=== PATIENT | female | born 1955 | race Caucasian/White ===

== ENCOUNTER 2020-08-09 16:33 | Emergency (ER) | payer OTHER ==
[~2020-08-09] VITALS: Ht 175.3 cm; Wt 79.4 kg
[2020-08-09 16:42] VITALS: BP 174/117
--- NOTE | 2020-08-09 17:00 | NUR ---
Biba w c/o R shoulder subluxation s/p mech fall earlier today. -LOC, deformity noted to r shoulder 10/10 pain. hx: copd, htn, depression
[2020-08-09] MEDS ORDERED: MORPHINE SULFATE 4 MG/ML SYR IVP ONE (18:10)
[2020-08-09] MEDS ORDERED: KETOROLAC 15 MG/ML VIAL IVP ONE (18:10)
[2020-08-09] MEDS ORDERED: HYDROcodone/APAP 5/325 MG 1 TAB TAB PO ONE (18:15)
--- NOTE | 2020-08-09 19:04 | NUR ---
applied sling and irrigated lac without any issues
[2020-08-09 19:38] VITALS: BP 150/70
--- NOTE | 2020-08-09 19:38 | NUR ---
Patient discharged with v/s stable. Written and verbal after care instructions given and explained. Patient alert, oriented and verbalized understanding of instructions. Ambulatory with steady gait. All questions addressed prior to discharge. ID band removed. Patient advised to follow up with PMD. Rx of MOTRIN AND NORCO given. Patient educated on indication of medication including possible reaction and side effects. Opportunity to ask questions provided and answered.
== END 2020-08-09 19:38 | disposition home or self-care (01) ==
LOC: MED 16:33
DX: S42.291A Other displaced fracture of upper end of right humerus, initial encounter for closed fracture (principal); S01.81XA Laceration without foreign body of other part of head, initial encounter; F17.290 Nicotine dependence, other tobacco product, uncomplicated; W01.0XXA Fall on same level from slipping, tripping and stumbling without subsequent striking against object, initial encounter; Y93.01 Activity, walking, marching and hiking; Y92.89 Other specified places as the place of occurrence of the external cause; Y99.8 Other external cause status
CPT/HCPCS: 73030; 90471; 90715; 96374; 99284; J1885

== ENCOUNTER 2022-10-26 10:27 | Inpatient (IN) | payer OTHER ==
[~2022-10-26] VITALS: Ht 170.2 cm; Wt 90.7 kg
--- NOTE | 2022-10-26 10:28 | NUR ---
pt placed in bed 09 by am[facility]
[2022-10-26 10:31] VITALS: BP 136/88
--- NOTE | 2022-10-26 10:34 | NUR ---
67 y/o female biba from home, pt presents to ed with c/o sob, increased difficulty breathing since yesterday. pt at home was 80% on RA and was cyanotic per [facility]. pt given 15L nonrebreather, now at 95% saturation. denies any sick contacts, fever, chills, n/v/d. a&ox4, ambulates with assist. 7/10 chest pain. pmh: afib, htn, copd nka med: unable to recall
--- NOTE | 2022-10-26 10:37 | NUR ---
felicia and flu swabbed at this time
--- NOTE | 2022-10-26 10:40 | NUR ---
VALENTIN AND INFLUENZA SWABED AND WALKED TO THE LAB.
--- NOTE | 2022-10-26 10:48 | NUR ---
ASSUMED PATIEN CARE, NURSING ASSESSMENT COMPLETED.
[2022-10-26] MEDS ORDERED: ALBUTEROL 0.083% 2.5 MG/3 ML NEBU INH ONE (10:50)
[2022-10-26] MEDS ORDERED: IPRATROPIUM 0.02% 0.5 MG/2.5 ML NEBU INH ONE (10:50)
[2022-10-26] MEDS ORDERED: DILTIAZEM 25 MG/5 ML VIAL IVP ONE (11:00)
[2022-10-26 11:09] LABS: BASOPHILS % (AUTO) 0.2 % (0.0-2.0); EOSINOPHILS % (AUTO) 0.1 % (0.0-4.0); HEMATOCRIT 36.1 % (36-48); HEMOGLOBIN 11.4 g/dL (12.0-16.0); LYMPHOCYTES # (AUTO) 0.6 K/uL (2.5-16.5); LYMPHOCYTES % (AUTO) 5.9 % (20.5-51.1); MEAN CORPUSCULAR HEMOGLOBIN 26 pg (27-31); MEAN CORPUSCULAR HGB CONC 32 g/dL (33-37); MEAN CORPUSCULAR VOLUME 83.7 fL (80-94); MONOCYTES # (AUTO) 0.4 K/uL (0.8-1.0); MONOCYTES % (AUTO) 3.9 % (1.7-9.3); NEUTROPHILS # (AUTO) 8.5 K/uL (1.8-7.7); NEUTROPHILS % (AUTO) 89.9 % (42.2-75.2); PLATELET COUNT (AUTO) 266 K/uL (140-450); RED BLOOD CELL COUNT(AUTO) 4.31 MIL/uL (4.20-5.40); RED CELL DISTRIBUTION WIDTH 15.9 % (11.6-13.7); WHITE BLOOD COUNT (AUTO) 9.5 K/uL (4.8-10.8)
[2022-10-26 11:23] LABS: ALBUMIN 3.8 g/dL (3.4-5.0); ANION GAP 17.9 (8-16); CARBON DIOXIDE 21.9 mmol/L (21-32); CREATININE 1.5 mg/dL (0.6-1.3); POTASSIUM 4.8 mmol/L (3.5-5.1); TOTAL BILIRUBIN 1.3 mg/dL (0.0-1.0)
[2022-10-26] MEDS ORDERED: AZITHROMYCIN 500 MG in DEXTROSE 5% 250 ML IV ONE (12:00)
--- NOTE | 2022-10-26 12:01 | NUR ---
PATIENT'S HEART RATE NORMALIZED TO 77/MIN, AFIB AFTER CARDIZEM PUSH. REPEAT EKG ORDERED.
[2022-10-26] MEDS ORDERED: cefTRIAXone 1,000 MG VIAL ONE (12:04)
[2022-10-26] MEDS ORDERED: AZITHROMYCIN 500 MG INJ VIAL IV ONE (12:05)
[2022-10-26] MEDS ORDERED: ZOLPIDEM 5 MG TAB PO PRN (12:35)
[2022-10-26] MEDS ORDERED: ACETAMINOPHEN 325 MG TAB PO PRN (12:35)
[2022-10-26] MEDS ORDERED: ONDANSETRON 4 MG/2 ML VIAL IM/IVP PRN (12:35)
[2022-10-26] MEDS ORDERED: DOCUSATE SODIUM 100 MG GELCAP PO PRN (12:35)
[2022-10-26] MEDS ORDERED: HYDROcodone/APAP 7.5/325 MG 1 TAB PO PRN (12:35)
[2022-10-26] MEDS ORDERED: guaiFENesin DM 200/20 MG-10 ML 10 ML UDC PO PRN (12:35)
[2022-10-26 13:02] LABS: PROTHROMBIN TIME 12.8 secs (10.8-13.4)
[2022-10-26 13:07] LABS: FREE T4 (FREE THYROXINE) 1.13 ng/dL (0.76-1.46); MAGNESIUM 1.9 mg/dL (1.8-2.4); PHOSPHORUS 4.3 mg/dL (2.5-4.9); THYROID STIMULATING HORMONE 4.87 uIU/mL (0.34-3.74)
--- NOTE | 2022-10-26 14:35 | NUR ---
Patient will be admitted to care of DR SARKAR. Admited to MED-SURG. Will go to room. Belongings list completed. Report to .
--- NOTE | 2022-10-26 15:00 | NUR ---
receive the patient form emergency room nurse Tino mills admitting diagnosis pneumonia . will continue to monitor
--- NOTE | 2022-10-26 15:15 | NUR ---
seen and examine by md caro , adjunct trainer . made some orders .
[2022-10-26 16:00] VITALS: BP 143/98
[2022-10-26] MEDS: FUROSEMIDE 20 MG/2 ML VIAL IVP SCH (16:03)
[2022-10-26] MEDS: NACL 0.9% 1,000 ML IV SCH (16:04)
--- NOTE | 2022-10-26 18:03 | NUR ---
will endorse to rn shift mgr rn for continuity of care . close monitoring on oxygen saturation
--- NOTE | 2022-10-26 19:00 | NUR ---
RECEIVED PT FROM MORNING SHIFT NURSE. PT IS AOX4, CAREGIVER ON BEDSIDE, ON BED REST, ABLE TO VERBALIZE NEEDS AND ABLE TO FOLLOW COMMANDS. PT IS ON 5L NC AND ON REGULAR DIET. PT HAS IV ON RIGHT HAND GAUGE 20 RUNNING WITH NS AT 60ML/HR. PT SKIN IS INTACT. NO COMPLAIN OF PAIN AT THIS TIME, NO S/S OF RESPIRATORY DISTRESS NOTED. ALL SAFETY MEASURES IMPLEMENTED. BED IN LOW POSITION, BED WHEELS ON LOCK AND CALL LIGHT WITHIN REACH.
[2022-10-26] MEDS: ALBUTEROL 0.083% 2.5 MG/3 ML NEBU INH SCH (19:40)
[2022-10-26 20:00] VITALS: BP 154/102
--- NOTE | 2022-10-26 20:00 | NUR ---
PUT PUREWICK ON PT PER PT REQUEST. ALL SAFETY MEASURES IMPLEMENTED. BED IN LOW POSITION, BED WHEELS ON LOCK AND CALL LIGHT WITHIN REACH.
[2022-10-26] MEDS: DILTIAZEM 60 MG TAB PO SCH (20:17)
[2022-10-26] MEDS: APIXABAN 2.5 MG TAB PO SCH (20:18)
--- NOTE | 2022-10-26 20:18 | NUR ---
ALL SCHEDULED AND PRESCRIBED MEDICATION WAS GIVEN TO PT PER MD ORDER. ALL SAFETY MEASURES IMPLEMENTED. BED IN LOW POSITION, BED WHEELS ON LOCK AND CALL LIGHT WITHIN REACH.
--- NOTE | 2022-10-26 22:00 | NUR ---
PT WAS GIVEN WARM BLANKET PER PT REQUEST. NO S/S OF RESPIRATORY DISTRESS NOTED AND NO COMPLAIN OF PAIN. ALL SAFETY MEASURES IMPLEMENTED. BED IN LOW POSITION, BED WHEELS ON LOCK AND CALL LIGHT WITHIN REACH.
--- NOTE | 2022-10-27 | NUR ---
PT IS SLEEPING. CHEST RISE AND FALL SYMMETRICALLY NOTED. RESPIRATION IS EVEN AND UNLABORED. ALL SAFETY MEASURES IMPLEMENTED. BED IN LOW POSITION, BED WHEELS ON LOCK AND CALL LIGHT WITHIN REACH.
--- NOTE | 2022-10-27 02:00 | NUR ---
CHECKED THE PT STILL SLEEPING. CHEST RISE AND FALL SYMMETRICALLY NOTED. RESPIRATION IS EVEN AND UNLABORED. ALL SAFETY MEASURES IMPLEMENTED. BED IN LOW POSITION, BED WHEELS ON LOCK AND CALL LIGHT WITHIN REACH.
[2022-10-27] MEDS: ALBUTEROL 0.083% 2.5 MG/3 ML NEBU INH SCH ×4 (03:42→20:30)
[2022-10-27] MEDS: DILTIAZEM 60 MG TAB PO SCH ×3 (04:10→20:05)
[2022-10-27] MEDS: NACL 0.9% 1,000 ML IV SCH (05:15)
[2022-10-27 06:20] LABS: BASOPHILS % (AUTO) 0.3 % (0.0-2.0); EOSINOPHILS # (AUTO) 0.1 K/uL (0-0.4); EOSINOPHILS % (AUTO) 1.3 % (0.0-4.0); HEMATOCRIT 32.9 % (36-48); HEMOGLOBIN 10.6 g/dL (12.0-16.0); LYMPHOCYTES # (AUTO) 1.1 K/uL (2.5-16.5); MEAN CORPUSCULAR HEMOGLOBIN 27 pg (27-31); MEAN CORPUSCULAR HGB CONC 32 g/dL (33-37); MONOCYTES % (AUTO) 10.1 % (1.7-9.3); NEUTROPHILS # (AUTO) 7.9 K/uL (1.8-7.7); NEUTROPHILS % (AUTO) 77.3 % (42.2-75.2); PLATELET COUNT (AUTO) 220 K/uL (140-450); RED BLOOD CELL COUNT(AUTO) 3.97 MIL/uL (4.20-5.40); RED CELL DISTRIBUTION WIDTH 16.1 % (11.6-13.7); WHITE BLOOD COUNT (AUTO) 10.3 K/uL (4.8-10.8)
[2022-10-27 07:00] LABS: ANION GAP 12.1 (8-16); CARBON DIOXIDE 27.8 mmol/L (21-32); CREATININE 1.4 mg/dL (0.6-1.3); POTASSIUM 3.9 mmol/L (3.5-5.1)
--- NOTE | 2022-10-27 07:01 | NUR ---
receive the patinet from the shift leader rn in rm [id number] admitting diagnosis of pneumonia . will continue to monitor oxygen saturation
--- NOTE | 2022-10-27 07:24 | NUR ---
PT IS STABLE. ENDORSED PT TO MORNING SHIFT NURSE FOR CONTINUITY OF CARE.
[2022-10-27 08:00] VITALS: BP 125/88
[2022-10-27 08:08] LABS: T4 (THYROXINE) 5.9 ug/dL (4.5-12.0)
[2022-10-27] MEDS: FUROSEMIDE 20 MG/2 ML VIAL IVP SCH ×2 (08:41→17:56)
[2022-10-27] MEDS: APIXABAN 2.5 MG TAB PO SCH ×2 (08:43→20:08)
[2022-10-27] MEDS: PANTOPRAZOLE 40 MG TABEC PO SCH (08:45)
--- NOTE | 2022-10-27 09:21 | NUR ---
PATIENT HAS BEEN SCREENED AND CATEGORIZED MODERATE NUTRITION RISK. PATIENT WILL BE SEEN WITHIN 3-5 DAYS OF ADMISSION. REVIEWED BY ANN-MARIE BOSS RD
--- NOTE | 2022-10-27 11:47 | NUR ---
P.T. NOTES P.T. EVAL COMPLETED; REFER TO EVAL FOR DETAILS.
[2022-10-27] MEDS: AZITHROMYCIN 500 MG in DEXTROSE 5% 250 ML IV SCH (13:13)
--- NOTE | 2022-10-27 15:00 | NUR ---
DC PLANNING ASSESSMENT COMPLETE PLEASE REFER TO ASSESSMENT FOR DETAILS TENTATIVE DC PLAN IS FOR PT TO RETURN HOME WITH CAREGIVER PROVIDING TRANSPORTATION, WHEN MEDICALLY STABLE. Addendum: 10/27/22 at 1501 by Linda JOSEPH Amended: Links added.
[2022-10-27 16:00] VITALS: BP 133/88
--- NOTE | 2022-10-27 18:33 | NUR ---
will endorse to music adapter rn for continuity of care
--- NOTE | 2022-10-27 18:36 | NUR ---
for discharge tomorrow
--- NOTE | 2022-10-27 18:37 | NUR ---
will endorse to bar machine operator production rn for continuity of care
--- NOTE | 2022-10-27 19:25 | NUR ---
RECEIVED REPORT FROM DAY SHIFT NURSE FOR CONTINUITY OF CARE. PT IS STABLE AT THIS TIME. ON 3L NASAL CANULA WITH BILATERAL WHEEZING AND COUGHING. ALERT AND ORIENTED X3, DOES BECOME CONFUSED AT TIMES. IV SITE LOCATED AT RIGHT HAND 20 GAUGE. FLUSHED THE LINE AND IT IS PATENT AND INTACT, BUT PT STATES THERE IS SOME PAIN WHEN FLUSHING. WILL PLAN TO START NEW IV. CALL LIGHT WITHIN REACH, SAFETY MEASURES IN PLACE, WILL CONTINUE TO MONITOR.
--- NOTE | 2022-10-27 20:00 | NUR ---
Patient's Plan of Care was discussed and reviewed with THELMA FERREIRA:
--- NOTE | 2022-10-27 21:06 | NUR ---
PT EXPERIENCING WHEEZING X3 DAYS. DR SARKAR WAS CONTACTED. APPROVED AN ORDER FOR DUONEB Q4H PRN. POC AND ORDERS WERE DISCUSSED WITH ARCHANA FROM RT. WILL CONTINUE TO MONITOR PT.
[2022-10-27] MEDS ORDERED: ALBUTEROL 0.083% 2.5 MG/3 ML NEBU INH PRN (21:45)
--- NOTE | 2022-10-27 23:50 | NUR ---
PT CURRENTLY REFUSING NEW IV INSERTION, STATES SHE WANTS TO REST. WILL CONTINUE TO MONITOR.
[2022-10-28] VITALS: BP 150/96
[2022-10-28] MEDS: ALBUTEROL 0.083% 2.5 MG/3 ML NEBU INH SCH ×4 (01:37→20:40)
[2022-10-28] MEDS: IPRATROPIUM 0.02% 0.5 MG/2.5 ML NEBU INH PRN ×2 (01:37→14:11)
[2022-10-28 01:42] LABS: APPEARANCE,URINE CLEAR (CLEAR); BILIRUBIN,URINE NEGATIVE (NEGATIVE); BLOOD, URINE NEGATIVE (NEGATIVE); COLOR,URINE YELLOW (YELLOW); LEUKOCYTE ESTERASE ,URINE NEGATIVE (NEGATIVE); NITRITE, URINE NEGATIVE (NEGATIVE); UGLUCOSE NEGATIVE (NEGATIVE)
--- NOTE | 2022-10-28 01:48 | NUR ---
PT STATES HAVING DIFFICULTY BREATHING. CURRENT O2 SAT = 84. REPOSITIONED PT AND RAISED HOB, STILL SATING BELOW 90%. RAISED O2 TO 4L AND NOTIFIED RT OF CHANGE IN CONDITION. PT RECEIVED BREATHING TREATMENT AND IS NOW SATING AT 95%. WILL CONTINUE TO MONITOR.
[2022-10-28 02:18] LABS: BARBITURATE, URINE NEGATIVE ng/ml (NEG <=200); BENZODIAZEPINE, URINE NEGATIVE ng/mL (NEG <=200); CANNABINOID, URINE NEGATIVE ng/mL (NEG <=50); COCAINE, URINE NEGATIVE ng/mL (NEG <=300); OPIATE, URINE NEGATIVE ng/mL (NEG <=2000); PHENCYCLIDINE SCREEN,URINE NEGATIVE ng/mL (NEG <=25)
[2022-10-28] MEDS: DILTIAZEM 60 MG TAB PO SCH ×3 (05:06→20:20)
[2022-10-28 06:46] LABS: ANION GAP 12.7 (8-16); BASOPHILS % (AUTO) 0.3 % (0.0-2.0); CARBON DIOXIDE 28.4 mmol/L (21-32); CREATININE 1.2 mg/dL (0.6-1.3); EOSINOPHILS # (AUTO) 0.1 K/uL (0-0.4); EOSINOPHILS % (AUTO) 1.5 % (0.0-4.0); HEMATOCRIT 32.4 % (36-48); HEMOGLOBIN 10.4 g/dL (12.0-16.0); LYMPHOCYTES % (AUTO) 10.6 % (20.5-51.1); MEAN CORPUSCULAR HEMOGLOBIN 27 pg (27-31); MEAN CORPUSCULAR HGB CONC 32 g/dL (33-37); MEAN CORPUSCULAR VOLUME 82.5 fL (80-94); MONOCYTES % (AUTO) 10.7 % (1.7-9.3); NEUTROPHILS # (AUTO) 7.6 K/uL (1.8-7.7); NEUTROPHILS % (AUTO) 76.9 % (42.2-75.2); PLATELET COUNT (AUTO) 231 K/uL (140-450); POTASSIUM 3.1 mmol/L (3.5-5.1); RED BLOOD CELL COUNT(AUTO) 3.93 MIL/uL (4.20-5.40); RED CELL DISTRIBUTION WIDTH 16.1 % (11.6-13.7); WHITE BLOOD COUNT (AUTO) 9.8 K/uL (4.8-10.8)
[2022-10-28 08:00] VITALS: BP 150/96
[2022-10-28] MEDS: APIXABAN 2.5 MG TAB PO SCH ×2 (09:43→20:21)
[2022-10-28] MEDS: POTASSIUM CHLORIDE 10 MEQ TABER PO PRN (09:44)
[2022-10-28] MEDS: PANTOPRAZOLE 40 MG TABEC PO SCH (09:44)
[2022-10-28] MEDS: FUROSEMIDE 20 MG/2 ML VIAL IVP SCH ×2 (09:45→17:00)
[2022-10-28] MEDS: AZITHROMYCIN 500 MG in DEXTROSE 5% 250 ML IV SCH (13:00)
[2022-10-28] MEDS ORDERED: DIGOXIN 0.25 MG/ML AMP IV SCH (15:00)
--- NOTE | 2022-10-28 15:40 | NUR ---
Called to Pt room because pt was complaining of SOB and having difficulty breathing. Pt saturation was 88%. Pt HR was increased, was anxious and in distress. Gave Pt PRN treatment and talked with her. Pt calmed down, saturation was up to 96%. Will continue to monitor PT.
[2022-10-28] MEDS ORDERED: ALPRAZolam 0.5 MG TAB PO PRN (15:45)
--- NOTE | 2022-10-28 15:51 | NUR ---
HERE AND SEEN THE PATIENT. DIGOXIN IVP GIVEN ORDERED. MONITORED CLOSELY. PATIENT PLACED ON TELE PER MD ORDER
[2022-10-28 16:00] VITALS: BP 155/84
--- NOTE | 2022-10-28 19:51 | NUR ---
RECEIVED REPORT FROM DAY SHIFT NURSE FOR CONTINUITY OF CARE. PT IS ASLEEP IN BED, NOTICEABLE CHEST RISE AND FALL NOTED. PT WAS SEEN BY CARDIOLOGISTS AND WAS UPGRADED TO TELE. VITAL SIGNS WERE TAKEN, ALL WNL. WILL MAKE FREQUENT ROUNDS THROUGHOUT SHIFT.
--- NOTE | 2022-10-28 20:00 | NUR ---
Patient's Plan of Care was discussed and reviewed with THELMA FERREIRA:
--- NOTE | 2022-10-28 21:22 | NUR ---
SCHEDULED MEDICATIONS ADMINISTERED WITH NO COMPLICATIONS. NO SIGNS OF DISTRESS NOTED, WILL CONTINUE TO MONITOR.
[2022-10-29] VITALS (7 sets, daily range): BP systolic 123–152; BP diastolic 71–90
[2022-10-29] MEDS: ALBUTEROL 0.083% 2.5 MG/3 ML NEBU INH SCH ×4 (01:00→19:03)
--- NOTE | 2022-10-29 01:58 | NUR ---
PT STATES SHE WANTS TO SLEEP AND NOT DO HER 1AM TX. SPO2 95% ON 3L BS CLEAR AND NO SIGNS OF RESP DISTRESS
[2022-10-29] MEDS: DILTIAZEM 60 MG TAB PO SCH ×3 (04:45→20:05)
[2022-10-29 07:04] LABS: BASOPHILS % (AUTO) 0.5 % (0.0-2.0); EOSINOPHILS # (AUTO) 0.3 K/uL (0-0.4); HEMATOCRIT 35.5 % (36-48); HEMOGLOBIN 11.1 g/dL (12.0-16.0); LYMPHOCYTES # (AUTO) 0.9 K/uL (2.5-16.5); LYMPHOCYTES % (AUTO) 8.3 % (20.5-51.1); MEAN CORPUSCULAR HEMOGLOBIN 26 pg (27-31); MEAN CORPUSCULAR HGB CONC 31 g/dL (33-37); MONOCYTES % (AUTO) 9.7 % (1.7-9.3); NEUTROPHILS # (AUTO) 8.4 K/uL (1.8-7.7); NEUTROPHILS % (AUTO) 78.5 % (42.2-75.2); PLATELET COUNT (AUTO) 245 K/uL (140-450); RED BLOOD CELL COUNT(AUTO) 4.28 MIL/uL (4.20-5.40); WHITE BLOOD COUNT (AUTO) 10.7 K/uL (4.8-10.8)
[2022-10-29 07:12] LABS: CREATININE 1.1 mg/dL (0.6-1.3); POTASSIUM 3.4 mmol/L (3.5-5.1)
--- NOTE | 2022-10-29 07:13 | NUR ---
LOC ASLEEP EASILY AWAKENS OFF SUPPLEMENTAL OXYGEN PATIENT STATES "I DIDN'T KNOW IT WAS OFF" C/O OF NASAL DRYNESS WITH OXYGEN USE POST HHN THERAPY PLACED ON HUMIDIFIED SUPPLEMENTAL OXYGEN AT 3 LPM VIA NC
[2022-10-29 07:21] LABS: ANION GAP 12.6 (8-16); CARBON DIOXIDE 29.8 mmol/L (21-32)
--- NOTE | 2022-10-29 07:30 | NUR ---
RECEIVED REPORT FROM ENVELOPE SEALER OPERATOR NURSE FOR CONTINUITY OF CARE, PT IS ASLEEP IN BED WITH CHEST RISING AND FALLING. NO ACUTE S/S OF DISTRESS. ON TELE MONITOR. ALL SAFETY MEASURES IN PLACE, CALL LIGHT WITHIN REACH.
--- NOTE | 2022-10-29 08:00 | NUR ---
RECEIVED REPORT FROM NOC SHIFT RN FOR CONTINUITY OF CARE AWAKE, IN NO ACUTE DISTRESS, NO C/O SHORTNESS OF BREATH NOTED. AOX3.
[2022-10-29] MEDS: FUROSEMIDE 20 MG/2 ML VIAL IVP SCH ×2 (08:47→17:10)
[2022-10-29] MEDS: DIGOXIN 0.25 MG TAB PO SCH (08:48)
[2022-10-29] MEDS: APIXABAN 2.5 MG TAB PO SCH ×2 (08:48→20:07)
[2022-10-29] MEDS: PANTOPRAZOLE 40 MG TABEC PO SCH (08:48)
--- NOTE | 2022-10-29 10:00 | NUR ---
IN NO ACUTE DISTRESS, HOB UP AT 30 DEGREES. PUREWICK FUNCTIONING WELL, URINE CLEAR AND YELLOW.
--- NOTE | 2022-10-29 11:26 | NUR ---
NEXT OF KIN GRAZYNA UPDATED WITH PATIENT'S STATUS.
--- NOTE | 2022-10-29 12:08 | NUR ---
PT HAIR HAS BEEN BRUSHED AND BRAIDED PER PTS REQUEST. ALL PERSONNEL HYGIENE COMPLETED AND NEW SHEETS PROVIDED.
--- NOTE | 2022-10-29 12:26 | NUR ---
DENIES DICOMFORT AT THIS TIME. LUNCH SERVED AND IS TOLERATING THE DIET WELL.
[2022-10-29] MEDS: AZITHROMYCIN 500 MG in DEXTROSE 5% 250 ML IV SCH (13:37)
--- NOTE | 2022-10-29 15:34 | NUR ---
LEFT HAND IV INFILTRATED, IV REMOVED CATH IN PLACE, ICE PROVIDED. NEW IV INSERTED TO LEFT AC 22G. ALL SAFETY MEASURES IN PLACE, CALL LIGHT WITHIN REACH
[2022-10-29] MEDS ORDERED: POTASSIUM CHLORIDE 10 MEQ TABER PO ONE (16:40)
[2022-10-29] MEDS: POTASSIUM CHLORIDE 10 MEQ TABER PO PRN (16:51)
--- NOTE | 2022-10-29 18:35 | NUR ---
ALL NEEDS MET THROUGHOUT THE SHIFT, ALL SAFETY MEASURES IN PLACE. CALL LIGHT WITHIN REACH.
[2022-10-30] MEDS: ALBUTEROL 0.083% 2.5 MG/3 ML NEBU INH SCH ×4 (01:10→19:29)
[2022-10-30 04:15] VITALS: BP 119/73
[2022-10-30] MEDS: DILTIAZEM 60 MG TAB PO SCH ×3 (04:15→20:04)
--- NOTE | 2022-10-30 04:37 | NUR ---
rn notes patient remains on 3L nasal cannula, no sob noted, VSS all shift. Took all medication. Denies pain all shift.Plan is to repeat cxr in 4-6 weeks, pending for SNF placement.
[2022-10-30 06:49] LABS: ANION GAP 11.6 (8-16); CREATININE 1.1 mg/dL (0.6-1.3); POTASSIUM 3.6 mmol/L (3.5-5.1)
[2022-10-30 06:55] LABS: BASOPHILS # (AUTO) 0.1 K/uL (0.00-0.22); BASOPHILS % (AUTO) 0.9 % (0.0-2.0); EOSINOPHILS # (AUTO) 0.3 K/uL (0-0.4); EOSINOPHILS % (AUTO) 2.8 % (0.0-4.0); HEMATOCRIT 34.4 % (36-48); HEMOGLOBIN 11.3 g/dL (12.0-16.0); LYMPHOCYTES # (AUTO) 0.8 K/uL (2.5-16.5); LYMPHOCYTES % (AUTO) 7.9 % (20.5-51.1); MEAN CORPUSCULAR HEMOGLOBIN 27 pg (27-31); MEAN CORPUSCULAR HGB CONC 33 g/dL (33-37); MEAN CORPUSCULAR VOLUME 80.7 fL (80-94); MONOCYTES # (AUTO) 0.9 K/uL (0.8-1.0); MONOCYTES % (AUTO) 8.7 % (1.7-9.3); NEUTROPHILS # (AUTO) 7.9 K/uL (1.8-7.7); NEUTROPHILS % (AUTO) 79.7 % (42.2-75.2); PLATELET COUNT (AUTO) 269 K/uL (140-450); RED BLOOD CELL COUNT(AUTO) 4.27 MIL/uL (4.20-5.40); RED CELL DISTRIBUTION WIDTH 16.1 % (11.6-13.7); WHITE BLOOD COUNT (AUTO) 9.9 K/uL (4.8-10.8)
--- NOTE | 2022-10-30 07:21 | NUR ---
RECEIVED REPORT FROM ASSEMBLER UTILITY BUILDINGS NURSE, ALL NIGHT EVENTS DISCUSSED. PT IS ASLEEP IN BED ON 3L NC, ON TELE MONITOR. NO S/S OF DISTRESS, CHEST RISING AND FALLING EVEN AND UNLABORED. ALL SAFETY MEASURES IN PLACE, CALL LIGHT WITHIN REACH.
[2022-10-30 08:00] VITALS: BP 143/79
[2022-10-30] MEDS: DIGOXIN 0.25 MG TAB PO SCH (08:18)
[2022-10-30] MEDS: PANTOPRAZOLE 40 MG TABEC PO SCH (08:18)
[2022-10-30] MEDS: APIXABAN 2.5 MG TAB PO SCH ×2 (08:19→20:10)
[2022-10-30] MEDS: FUROSEMIDE 20 MG/2 ML VIAL IVP SCH ×2 (08:19→17:00)
--- NOTE | 2022-10-30 09:35 | NUR ---
DR. MARIN DAVILA AT [facility]: CHANGE HHN THERAPY Q6 UD ALBUTEROL/ATROVENT
[2022-10-30] MEDS: IPRATROPIUM 0.02% 0.5 MG/2.5 ML NEBU INH PRN (09:36)
--- NOTE | 2022-10-30 09:48 | NUR ---
DR. MARIN DAVILA MADE AWARE OF PATIENT PRODUCTIVE COUGH OF MODERATE THICK YELLOW SECRETIONS VORBO: 1ml/20% MUCOMYST X 2 DAYS ONLY
[2022-10-30 12:00] VITALS: BP 117/75
--- NOTE | 2022-10-30 12:12 | NUR ---
IV INFILTRATED, NEW IV STARTED TO THE LEFT HAND 24 G. IV ABX RUNNING, PATENT AND INTACT. ALL SAFETY MEASURES IN PLACE, CALL LIGHT WITHIN REACH.
[2022-10-30] MEDS: AZITHROMYCIN 500 MG in DEXTROSE 5% 250 ML IV SCH (13:24)
[2022-10-30] MEDS: ACETYLCYSTEINE 20% (200 MG/ML) 200 MG/ML VIAL INH SCH ×2 (14:43→19:29)
[2022-10-30] MEDS: IPRATROPIUM 0.02% 0.5 MG/2.5 ML NEBU INH SCH ×2 (14:43→19:29)
--- NOTE | 2022-10-30 15:32 | NUR ---
PRN COUGH MEDICINE ADMINISTERED PER MD ORDER, PT TOLERATED ADMINISTRATION. PT STATES SHE WOULD LIKE TO SLEEP, ALL COMFORT MEASURES AND NEEDS MET. ALL SAFETY MEASURES IN PLACE, CALL LIGHT WITHIN REACH.
[2022-10-30 16:00] VITALS: BP 144/88
--- NOTE | 2022-10-30 18:05 | NUR ---
ALL NEEDS MET THROUGHOUT THE SHIFT, ALL QUESTIONS ANSWERED. ON TELE MONITOR. NO S/S OF DISTRESS. ALL SAFETY MEASURES IN PLACE, CALL LIGHT WITHIN REACH.
--- NOTE | 2022-10-30 19:59 | NUR ---
bp 125/75 , hr 93 - will give sched meds , call light within reach , no s/sx of acute ditress noted , breathing txt just given by rt . will cont. to monitor Addendum: 10/30/22 at 2001 by Norma Moseley RN DOUBLE CHECK THE IDENTIFICATION BAND
[2022-10-30 20:00] VITALS: BP 125/75
--- NOTE | 2022-10-30 23:10 | NUR ---
PT IS ASLEEP, SPO2 IS 94% ON 2L NC. NO RESPIRATORY DISTRESS NOTED, WILL CONTINUE TO MONITOR. Addendum: 10/30/22 at 2319 by ROLANDA AVALOS RT DISREGARD, WRONG PT.
[2022-10-31] VITALS: BP 122/77
--- NOTE | 2022-10-31 | NUR ---
ROUNDS , NO S/SX OF ACUTE DISTRESS NOTED AT THIS TIME , CALL LIGHT WITHIN REACH , WILL CONT. TO MONITOR
[2022-10-31] MEDS: ACETYLCYSTEINE 20% (200 MG/ML) 200 MG/ML VIAL INH SCH ×2 (01:09→08:02)
[2022-10-31] MEDS: IPRATROPIUM 0.02% 0.5 MG/2.5 ML NEBU INH SCH ×2 (01:10→08:02)
[2022-10-31] MEDS: ALBUTEROL 0.083% 2.5 MG/3 ML NEBU INH SCH ×2 (01:10→08:02)
--- NOTE | 2022-10-31 02:00 | NUR ---
SLEEPING , AROUSABLE , NO COMPLAINTS MADE , CALL LIGHT WITHIN REACH .
--- NOTE | 2022-10-31 04:00 | NUR ---
ON TELE MONITOR , NO S/SX OF DISTRESS NOLTED , NO COMPLAIN MADE , CALL LIGHT WITHIN REACH . Addendum: 10/31/22 at 0624 by Norma Moseley RN BEDSIDE CARE RENDER , JEWELS HURLEY , CALL LIGHT WITHIN REACH .
[2022-10-31 04:58] VITALS: BP 140/76
--- NOTE | 2022-10-31 06:10 | NUR ---
BP REC HECK 140/ 89 , HR 85 - WILL GIVE SCHED . MED , CALL LIGHT WITHIN REACH . Addendum: 10/31/22 at 0737 by Norma Moseley RN relayed to dr. caro 4 am tele tracing , no further orders made - endorsed .
[2022-10-31] MEDS: DILTIAZEM 60 MG TAB PO SCH ×2 (06:20→13:00)
[2022-10-31 06:29] LABS: BASOPHILS # (AUTO) 0.1 K/uL (0.00-0.22); BASOPHILS % (AUTO) 0.6 % (0.0-2.0); EOSINOPHILS # (AUTO) 0.3 K/uL (0-0.4); EOSINOPHILS % (AUTO) 3.6 % (0.0-4.0); HEMATOCRIT 36.3 % (36-48); HEMOGLOBIN 11.5 g/dL (12.0-16.0); LYMPHOCYTES % (AUTO) 10.2 % (20.5-51.1); MEAN CORPUSCULAR HEMOGLOBIN 26 pg (27-31); MEAN CORPUSCULAR HGB CONC 32 g/dL (33-37); MEAN CORPUSCULAR VOLUME 81.3 fL (80-94); MONOCYTES # (AUTO) 1.1 K/uL (0.8-1.0); MONOCYTES % (AUTO) 11.3 % (1.7-9.3); NEUTROPHILS # (AUTO) 7.1 K/uL (1.8-7.7); NEUTROPHILS % (AUTO) 74.3 % (42.2-75.2); PLATELET COUNT (AUTO) 262 K/uL (140-450); RED BLOOD CELL COUNT(AUTO) 4.46 MIL/uL (4.20-5.40); RED CELL DISTRIBUTION WIDTH 15.7 % (11.6-13.7); WHITE BLOOD COUNT (AUTO) 9.6 K/uL (4.8-10.8)
[2022-10-31 06:44] LABS: ANION GAP 7.5 (8-16); CARBON DIOXIDE 32.1 mmol/L (21-32); CREATININE 1.2 mg/dL (0.6-1.3); POTASSIUM 3.6 mmol/L (3.5-5.1)
--- NOTE | 2022-10-31 07:28 | NUR ---
endorsed pt cont. cont. of care
--- NOTE | 2022-10-31 07:30 | NUR ---
RECEIVED REPORT FROM NIGHT NURSE CARLO FOR CONTINUITY OF CARE. INITIAL ASSESSMENT DONE. ALERT AND ORIENTED X 4. RESP. EVEN AND UNLABORED. IV SITE INTACT. CALL LIGHT KEPT WITHIN REACH. WILL CONTINUE TO MONITOR.
[2022-10-31 08:00] VITALS: BP 130/87
[2022-10-31] MEDS ORDERED: DILT60TA97 PO (09:08)
[2022-10-31] MEDS ORDERED: APIX2.5 PO (09:08)
[2022-10-31] MEDS ORDERED: FURO-570 PO (09:08)
[2022-10-31] MEDS ORDERED: AZIT250T11 PO (09:08)
[2022-10-31] MEDS ORDERED: Potassium Chloride PO (09:08)
[2022-10-31] MEDS: PANTOPRAZOLE 40 MG TABEC PO SCH (10:42)
[2022-10-31] MEDS: DIGOXIN 0.25 MG TAB PO SCH (10:42)
--- NOTE | 2022-10-31 10:42 | NUR ---
SCHEDULED MEDICATIONS GIVEN. TOLERATING WELL.
[2022-10-31] MEDS: APIXABAN 2.5 MG TAB PO SCH (10:43)
[2022-10-31] MEDS: FUROSEMIDE 20 MG/2 ML VIAL IVP SCH (10:56)
--- NOTE | 2022-10-31 11:39 | NUR ---
SCHEDULED IV ROCEPHIN GIVEN BY PETEY CAMARA TOLERATING WELL.
[2022-10-31 12:00] VITALS: BP 155/70
[2022-10-31] MEDS: AZITHROMYCIN 500 MG in DEXTROSE 5% 250 ML IV SCH (12:23)
--- NOTE | 2022-10-31 12:23 | NUR ---
SCHEDULED IV AZITHROMAX GIVEN BY ALLYSSA CAMARA. TOLERATING WELL.
--- NOTE | 2022-10-31 14:00 | NUR ---
PT LEFT, DISCHARGE TO HOME. TRANSPORTED BY PRIVATE CAR PER WHEELCHAIR. ACCOMPANIED BY HER CAREGIVER. ALERT AND VERBALLY RESPONSIVE. RESP. EVEN AND UNLABORED. IV AND ID BAND REMOVED. DISCHARGE PAPERWORK DISCUSS AND SIGNED BY PT. ALL PERSONAL BELONGINGS TAKEN. REMAINS STABLE.
--- NOTE | 2022-11-02 13:26 | NUR ---
NICOLE BENAVIDES CALLED JESSE [facility]S OFFICE LOCATED AT [address] [place] [id number]. SPOKE WITH DENISE WHO INFORMED ME PT FELTON ALREADY MADE AN APPOINTMENT FOR 11/03/2022 AT 1610.
== END 2022-10-31 14:00 | disposition home or self-care (01) | DRG 871 ==
LOC: MED 10:27 → MMU 12:30 → MTU 13:27
PROVIDERS: ADMIT Family Medicine; ATTEND Family Medicine
DX: A41.9 Sepsis, unspecified organism (principal); I50.43 Acute on chronic combined systolic (congestive) and diastolic (congestive) heart failure; J69.0 Pneumonitis due to inhalation of food and vomit; J96.21 Acute and chronic respiratory failure with hypoxia; N17.0 Acute kidney failure with tubular necrosis; J44.1 Chronic obstructive pulmonary disease with (acute) exacerbation; I13.0 Hypertensive heart and chronic kidney disease with heart failure and stage 1 through stage 4 chronic kidney disease, or unspecified chronic kidney disease; J44.0 Chronic obstructive pulmonary disease with (acute) lower respiratory infection; I48.20 Chronic atrial fibrillation, unspecified; N18.9 Chronic kidney disease, unspecified; D63.8 Anemia in other chronic diseases classified elsewhere; Z20.822 Contact with and (suspected) exposure to COVID-19; Z79.01 Long term (current) use of anticoagulants; Z86.73 Personal history of transient ischemic attack (TIA), and cerebral infarction without residual deficits; Z87.891 Personal history of nicotine dependence; Z99.81 Dependence on supplemental oxygen
CPT/HCPCS: 36415; 71045; 80048; 80053; 80305; 81003; 82150; 82570; 83036; 83690; 83735; 83880; 84100; 84436; 84439; 84443; 84479; 84484; 85025; 85610; 85730; 93005; 94640; 96365; 96368; 97110; 97112; 97116; 97530; 99291; J0456; J0696; J1160; J1940; J3490; J7060; J7608; J7613; J7644